=== PATIENT | male | born 1940 | race Caucasian/White ===

== ENCOUNTER 2016-11-13 10:31 | Day surgery (SDC) | payer MEDICARE, OTHER ==
[~2016-11-13] VITALS: Ht 177.8 cm; Wt 103.0 kg
[~2016-11-13 10:31] MED LIST: 0.9% Sodium Chloride 1,000 ML IV SCH; ASPI-973 PO; CHOL10008 PO; CHOL200047 PO; LISI10TA PO; METO-272 PO; OMEG500C PO; OMEP20CA11 PO; Sodium Chloride LOK Flush 10 mL Syringe IV PRN; fentaNYL-PF 50 mCg/mL 2 mL Inj IVPUSH PRN
[2016-11-13 10:40] VITALS: BP 186/104; PULSE 58; RESP 14; O2SAT 99
[2016-11-13 10:51] VITALS: BP 173/95
[2016-11-13 11:51] VITALS: BP 119/89; PULSE 58; RESP 16; O2SAT 96
[2016-11-13 12:03] VITALS: BP 147/80; PULSE 61; RESP 16; O2SAT 99
[2016-11-13 12:13] VITALS: BP 147/80; PULSE 60; RESP 16; O2SAT 97
--- NOTE | 2016-11-13 13:19 | ENDO ---
[address] [address] ENDOSCOPY PROCEDURE PATIENT: RONNIE MATA : 1940 MR#: [id number] ADMIT: 11/13/2016 JOB ID: [id number] DATE OF SERVICE: 11/13/2016 TYPE OF OPERATION: Esophagogastroduodenoscopy with biopsy. PREOPERATIVE DIAGNOSIS(ES): Dysphagia. POSTOPERATIVE DIAGNOSIS(ES): Esophageal mass that appeared ulcerated and hard with friable mucosa strand at 36 cm from the incisors in which the scope could not pass. Several biopsies were taken at this site. ANESTHESIA: Fentanyl 125 mcg, Versed 7 mg IV administered. COMPLICATIONS: None. BLOOD LOSS: Minimal. DESCRIPTION OF PROCEDURE: After risks and benefits explained to the patient, informed consent was obtained. After anesthesia administered, upper endoscope inserted in mouth, intubated into the esophagus, to 36 cm from the incisors. The scope could not pass through this area due to a mass. After the procedure was done, the scope was withdrawn and the procedure terminated. FINDINGS: Upon entering the esophagus, there appeared to be a friable ulcerated mass that encompassed most of the lumen that appeared malignant in appearance. The scope tried to transverse through the mass in which the mass itself encompassed too much of the lumen. Several biopsies were taken of this region to rule out malignancy. The procedure was then aborted. IMPRESSION: Esophageal mass with ulceration and friable strand at 36 cm from the incisors in which the scope could not pass. RECOMMENDATIONS: 1. Await pathology results. 2. CT of chest, abdomen and pelvis with contrast for staging. 3. We will send oncology referral based upon the appearance at this point in time. 4. Follow up in GI clinic after pathology results are obtained.
--- NOTE | 2016-11-15 16:54 | PATH ---
SURGICAL PATHOLOGY Attending Physician:Sukumar Rojo MD CASE STATUS: Signed Out PATIENT NAME: RONNIE MATA PID: [id number] : 1940 DATE COLLECTED:11/13/2016 20:19 SPECIMEN: Esophagus, Biopsy CLINICAL HISTORY: DYSPHAGIA 1). ESOPHAGEAL MASS BIOPSY FINAL DIAGNOSIS: Esophageal Mass, Biopsy: Poorly differentiated neoplasm. Immunohistochemistry studies pending; results will be reported as an addendum. ICD10: C15.9 NOTE: Dr. Rojo notified of result at approximately 1:50 p.m. on 11-15-16. GROSS DESCRIPTION: The specimen is received in one formalin filled container labeled with the patient's name, sublabeled "esophageal mass" and consists of multiple extremely tiny portions of tissue which aggregate to 3.4 x 0.4 x 0.2 CM. The specimen is entirely submitted in one cassette. 11/13/2016 [facility] ICD-9 CODES: CPT CODES: 1: 06283, 29268, 67934, 46507, 47980, 27650, 75408, 23845, 92774, 38138, 88274 PROCEDURE/ADDENDA: Immunohistochemistry SPI Interpretation Esophageal Mass, Biopsy: Poorly differentiated carcinoma, primary site indeterminate (see addendum comment). Results-Comments This addendum is issued to report the results of slide consultation [facility] Calloway ([facility], [phone]). "The esophageal biopsies are composed of fragments of a poorly differentiated epithelioid malignancy which forms nests of intermediate to large cells with moderate amounts of faintly eosinophilic cytoplasm, ovoid pleomorphic nuclei with open chromatin and prominent nucleoli. The tumor cells merge and connect with an overlying ulcerated atypical squamous epithelium. A panel of immunostains is obtained to determine the cell lineage and primary site. Controls stained appropriately. The tumor cells show the following results: Cytokeratin 7: Uniformly positive. Cytokeratin 20: Negative. Cytokeratin 5/6: Rare cell positive. p63: Rare cell positive. Synaptophysin: Negative. CD45: Negative Melan-A: Negative. CDX2: Negative. Villin: Negative. TTF1: Negative. Napsin: Negative. GATA3: Negative. SALL4: Negative. Hep Par 1: Negative. HER-2 (4B5): Negative for overexpression (0). These results strongly support the diagnosis of a carcinoma given uniform expression with cytokeratin 7 and exclude the possibility of a lymphoma or melanoma (further ruled against given the negative CD45 and Melan-A, respectively). The primary site of this carcinoma remains indeterminate, however. Specifically, there is no confirmatory evidence for squamous cell (minimal expression only with p63 and cytokeratin 5/6) or neuroendocrine (negative synaptophysin) carcinoma. In addition, there is no evidence for an adenocarcinoma originating from gastrointestinal tract including lower esophagus/stomach and pancreatobiliary tree (negative CDX2/villin). Furthermore, there is no evidence for a " gut differentiation" subtype of gastric carcinoma (negative SALL4/Hep Par 1). Also, there is no evidence for the less likely possibilities of a metastatic deposit from an adenocarcinoma from lung (negative TTF1/napsin) or transitional cell carcinoma (negative GATA3) and the expression of CK7 in this case rules against the possibilities of origin from adenocarcinoma of prostate, renal cell carcinoma or hepatocellular carcinoma. These negative results with the above listed organ-specific markers, however, do not completely exclude origin from any of the listed sites and the possibility of a primary squamous cell carcinoma cannot be completely excluded either. Having said that, given the provided clinical history (patient presenting with esophageal mass, with no other known primaries), the possibility of a primary lower esophageal/gastric adenocarcinoma is slightly favored given that these tumors may show absence expression of the gastrointestinal markers CDX2 and villin in approximately 40%-50%. TECHNICAL NOTE: Cold ischemic time not provided. Formalin fixation time not provided. The scoring criteria for HER-2 expression by immunohistochemistry in gastric and esophagogastric junction adenocarcinoma is based on the current ASCO/CAP 2013 guidelines (as used in the ToGA trial, Ranjan et al, Lancet 28:376,687-697,2010). * This test was developed and its performance characteristics determined by [employer]. It has not been cleared or approved by the U.S. Food and Drug Administration. The FDA has determined that such clearance or approval is not necessary. This test is used for clinical purposes. It should not be regarded as investigational or for research." Electronically Signed Out Stefany Ryan MD Electronically Signed Out Nicole Cadena MD [facility] [address] [facility] [facility], [place] [address] Technical component performed at [facility], [address], [place], [address]
[2016-11-26] MEDS ORDERED: RED600CA2 PO (12:52)
[2016-11-26] MEDS ORDERED: LISI40TA PO (13:00)
[2016-11-26] MEDS ORDERED: CHOL500011 PO (13:00)
[2016-11-26] MEDS ORDERED: FISH1CAP15 PO (13:00)
== END 2016-11-13 23:59 | disposition home or self-care (01) ==
LOC: END 10:31
PROVIDERS: ATTEND Internal Medicine Gastroenterology
DX: D37.8 Neoplasm of uncertain behavior of other specified digestive organs (principal); R13.10 Dysphagia, unspecified; I10 Essential (primary) hypertension; Z72.89 Other problems related to lifestyle
CPT/HCPCS: 43239; 88305; 88341; 88342; G0500; J7030

== ENCOUNTER → 2017-02-11 | Day surgery (SDC) | payer MEDICARE, OTHER ==
[~2017-02-11] VITALS: Ht 177.8 cm; Wt 91.2 kg
[2017-02-11] VITALS (8 sets, daily range): BP systolic 141–167; BP diastolic 66–90; PULSE 68–100; RESP 16–22; O2SAT 95–100
[~2017-02-11] MED LIST changes: -0.9% Sodium Chloride 1,000 ML IV SCH; -ASPI-973 PO; +Ampicillin-Sulbactam Inj 3,000 MG in 0.9% Sodium Chloride 100 ML IV ONE; +Bupivacaine-MPF 0.5% W/EPI 30 mL Inj INFILTRATE ONE; -CHOL10008 PO; -CHOL200047 PO; +CHOL500011 PO; +Dexamethasone 4 mg/mL Inj IVPUSH PRN; +EPHEDrine Sulfate 50 mg/mL Inj IVPUSH PRN; +FISH1CAP15 PO; +Glycopyrrolate 0.2 MG/ML 1mL Inj ONE; +HYDROmorphone 1 mg/mL Inj IVPUSH PRN; -LISI10TA PO; +LISI40TA PO; +Lactated Ringer's 1,000 ML IV ONE; +Lactated Ringer's 1,000 ML IV SCH; +Lactated Ringer's 500 ML IV PRN; +MetoCLOpramide 5 mg/mL 2 mL Inj IVPUSH PRN; +Neostigmine 1 mg/mL 10 mL Inj ONE; -OMEG500C PO; -OMEP20CA11 PO; +Ondansetron 2 mg/mL 2 mL Inj IVPUSH PRN; +Ondansetron 2 mg/mL 2 mL Inj ONE; +Phenylephrine 10,000 mCg/mL Inj IVPUSH PRN; +Phenylephrine/NS-PF 100 mCg/mL 5 mL Syringe IVPUSH ONE; +Propofol 10,000 mCg/mL 20 mL Inj ONE; +RED600CA2 PO; +Rocuronium 10 mg/mL 5 mL Inj ONE; -Sodium Chloride LOK Flush 10 mL Syringe IV PRN; +Succinylcholine Chloride 20 mg/mL 5 mL Inj ONE; +fentaNYL-PF 50 mCg/mL 2 mL Inj ONE; +oxyCODONE 1 mg/mL 5 mL Liquid TUBE PRN
--- NOTE | 2017-02-11 12:02 | HP ---
[address] [address] HISTORY AND PHYSICAL PATIENT: RONNIE MATA : 1940 MR#: [id number] ADMIT: 02/11/2017 JOB ID: [id number] CHIEF COMPLAINT/IDENTIFICATION: Dr. Matthews has asked me to replace this patient's feeding tube. HISTORY OF PRESENT ILLNESS: A 77-year-old man who in October of this year was diagnosed with esophageal cancer. He underwent feeding jejunostomy tube placement laparoscopically by Dr. Sumit Rothman at [facility] with anticipated ventral surgery. However, at the same time, a liver biopsy demonstrated metastatic disease in the liver and at this point, he is no longer considered a surgical candidate. He has been receiving chemotherapy and radiation therapy here at [facility]. Last night at 7 p.m. his feeding jejunostomy came out. He is receiving essentially all of his nutrition and hydration through this, as he has difficulty swallowing due to a near obstructing mass at the distal esophagus. PAST MEDICAL HISTORY: 1. Hypertension. 2. Gout. 3. Status post rotator cuff surgery. 4. Status post left knee replacement. 5. Status post appendectomy. 6. Status post hernia surgery. MEDICATIONS: 1. Lisinopril. 2. Metoprolol. 3. Aspirin. 4. Xrhh-mvp-ecbnxay medications including omega-3 fatty acids. ALLERGIES: None. 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 Negative tobacco, except for the occasional cigar. Currently not drinking alcohol on a daily basis. FAMILY HISTORY: Noncontributory. REVIEW OF SYSTEMS: Noncontributory. PHYSICAL EXAMINATION: The patient is seen in the Oncology Clinic. Vital signs recorded within normal limits. Heart and lungs are unremarkable. He has a healing mini-laparotomy incision by the umbilicus, possibly a Clifton port placement. His jejunostomy site is open. In the Oncology Clinic, I attempted to intubate his jejunostomy blindly but have been unable to. Extremities are without edema. Neurologically, he is intact. LABORATORIES: His white count is 5.3, hematocrit 31.7, platelet count is 293. Chemistries are normal. Glucose is 116. Liver function tests are normal. IMPRESSION AND PLAN: Dislodged jejunostomy. I had hoped to be able to place it at the bedside but then made initial plan to place either a laparoscopic jejunostomy or a laparoscopic gastrostomy in the operating room. I have discussed the case with Dr. Sepulveda of radiology. Interventional Radiology will attempt to visualize this tract with dye, cannulate it with a wire perhaps and replace the feeding jejunostomy. This would be to the patient's advantage, as it would help him avoid a general anesthetic. Either way, we will get a tube into his gastrointestinal tract today.
--- NOTE | 2017-02-11 17:19 | PCM.HPANE ---
Patient Data Surgeon Admitting Provider: Attending Provider:Sukumar Karimi MD Primary Care Physician:Jarad Pink MD Other Provider:Katie Gutierrezingham Anesthesia Reason for Visit Placement Of Jejunostomy Tube Ht/WT & BMI Height (Feet): 5 Height (Inches): 10 Weight (Kilograms): 91.2 Body Mass Index 28.00 Allergies Coded Allergies: No Known Allergies (Unverified , 02/11/17) Past Anesthesia History Anesthesia History: Denies:: Abnormal Airway, Anesthesia Reactions, Difficult Intubation, Fam Anesthesia Reaction, Fam Malignant Hypertherm, Malignant Hyperthermia Diabetes History Hx Diabetes?: No MRSA MRSA: No Medications Blood Thinner: Aspirin Reported Medications Fish Oil/Dha/Epa (Fish Oil 1,200 mg Fish Oil)1 Each Capsule1 Each PO DAILY 11/26/16 Cholecalciferol (Vitamin D3) (Vitamin D3)5,000 Unit Tablet5,000 Unit PO DAILY 11/26/16 Lisinopril 40 Mg Nhwrgs05 Mg PO DAILY Ref 0 11/26/16 Red Yeast Rice 600 Mg Dmxiuzk320 Mg PO DAILY 11/26/16 Metoprolol Succinate ER 50 Mg Tab.er.24h50 Mg PO DAILY Ref 0 11/12/16 History History of ENT Problems?: No HEENT History: Positive for:: Dysphagia (SOLIDS) Hearing Problem Denies:: Abnormal Airway Difficult Intubation Denture Type: None Teeth Condition: Within Normal Limits Hx of Heart Problems?: Yes Cardiovascular History: Positive for:: Hypertension Denies:: AICD Atrial Fibrillation Chest Pain Pacemaker Valvular Heart Disease Other History/Comments Cardiac ROS negative, normal stress test in November, just to check things out Hx of Respiratory Problem?: No Respiratory History: Denies:: Asthma COPD Chest Surgery Cough Dyspnea Emphysema Hemoptysis Oxygen Administration Pneumonia Pulmonary Embolism Tuberculosis Use of C-PAP Machine Use of Inhalers / NEBS Other History/Comment ROS negative Hx Neurologic Problems?: No Neurological History: Denies:: CVA Hx of GI Problems?: Yes Other History/Comment stage 4 Esophagel cancer, j tube in place since december 11 Hx of Problems?: No HX of Peritoneal Dialysis: No Male Hx: Denies:: Prostate Problems Scrotal Mass Testicular Surgery Skin History: Denies:: History Skin Disorders? Pressure Ulcers Hx Musculoskeletal Problems?: No Musculoskeletal History: Positive for:: Joint Replacement (KNEE) Hx of Psycho/Social Problems?: No Psycho Social History: Denies:: Anxiety Hx Depression Hx Surgeries?: Yes (APPENDECTOMY/PARTIAL KNEE/ROTATOR CUFF) Hx Any Other Health Problems?: Yes Hx Diabetes: No Hx Alcohol Use: YesHave You Smoked inLast 12 mo: No Stop/Bang Treated for Sleep Apnea?: No Do You Have a CPAP Machine?: No Risk Assessment Category Category 1A: Patient has history of documented sleep apnea, and HAS NOT received any narcotic, sedative or anesthesia administration during this stay. Category 1B: Patient has history of documented sleep apnea, and HAS received any narcotic , sedative or anesthesia administration during this stay Category 2: Patient has SUSPECTED Obstructive Sleep Apnea, and HAS received any narcotic , sedative or anesthesia administration during this stay. Category 3: Patient has SUSPECTED Obstructive Sleep Apnea and HAS NOT received narcotic, sedative or anesthesia administration during this stay. Category 4: Outpatient in Procedural Areas with known sleep apnea or who screen positive for High Risk via the STOP/BANG questionnaire. Exam Exam Vital Signs Vital Signs Date Time Temp Pulse Resp B/P Pulse Ox O2 Delivery O2 Flow Rate FiO2 02/11/17 13:50 36.1 75 16 145/66 100 Room Air General Appearance: Alert, Oriented X3, Cooperative HEENT/AIRWAY: MP 2 Lungs: Clear to Auscultation Heart: Exam Unremarkable Meds/Labs/Diagnostics Admission Meds Current Medications Lactated Ringer's (Lr) 1,000 ml @ ud STK-MED ONCE IV Last administered on 02/11t 13:46; Start 02/11/17 at 13:46; Stop 02/11/17 at 13:47; Status DC Plan Impression Patient chart reviewed, patient interviewed and anesthestic plan with risks, benefits, and alternatives discussed, and informed consent obtained. ASA Physical Status: ASA4 Life Threatening Anesthetic Plan: GA Bene/Risks/Altern/Consents: Yes HP Complete Prior to Induction: Yes Sukumar Jimenez MD Feb 11, 2017 17:19
--- NOTE | 2017-02-11 18:46 | PCM.DISURG ---
Surgical Discharge Instruction Date of Service Feb 11, 2017 Dates of Hospitalization Date of Hospital Admission Providers Admitting Physician: Primary Care Physician: Jarda Pink MD Attending Physician: Sukumar Karimi MD Diet Discharge Diet: No restrictions Activity Discharge Activity-General: No restrictions, Activity as pain allows, No lifting >15 pounds for 2 weeks, No driving while taking narcotic Dressing and Incisional Care Dressing Care: Allow Steri Stripes to fall off, Remove outer dressing after 24 hrs Hygiene: May shower after (24 hours), DO NOT soak incision under water, NO bathtub, hot tub or whirlpool Additional Instructions Discharge Instructions You may use your J-tube today for feeds. You do not need to follow up with the surgery team unless you have concerns about your incisions or wish to proceed to having a g-tube (gastric) placed for bolus tube feeds. Call at any time with questions or concerns. Follow Up Plan Call your provider for: Fever, Increasing abdominal pain, Wound redness, Increasing wound pain, Discharge @ incision, pus discharge Joao Madrid MD Feb 11, 2017 18:46
--- NOTE | 2017-02-11 19:37 | OP ---
[address] [address] OPERATIVE REPORT PATIENT: RONNIE MATA : 1940 MR#: [id number] ADMIT: 02/11/2017 JOB ID: [id number] DATE OF SURGERY: 02/11/2017 PREOPERATIVE DIAGNOSIS(ES): Esophageal cancer. POSTOPERATIVE DIAGNOSIS(ES): Esophageal cancer. PROCEDURE: Laparoscopic feeding jejunostomy tube. SURGEON: Sukumar Karimi MD, and Dr. Jim Hunter CABANA ATTENDANT: Darrell Saleh PA-C. INDICATION: A 77-year-old man with stage IV esophageal cancer. His feeding jejunostomy came out today. Interventional Radiology attempted to replace it but he was unable to tolerate it. He is brought to the operating room for laparoscopic exploration with plans for either new feeding jejunostomy or feeding gastrostomy. FINDINGS: 1. A surgical specialist was medically necessary for camera operation. 2. Feeding jejunostomy placed as described below. PROCEDURE: The patient was brought to the operating room. General anesthetic was administered. SCOAP protocol was followed. Abdomen was prepped and draped in sterile fashion. The patient had a previous mini-laparotomy in the midline for feeding jejunostomy and a paramedian incision in the right abdomen. Therefore, attempted to get a pneumoperitoneum by placing a Veress needle in the right upper quadrant. We were unable to get satisfactory placement of the Veress needle and we attempted an optical trocar placement, but once again, we were unable to safely enter the peritoneal cavity with the optical trocar. We then went to the left upper quadrant and placed an optical trocar with good success and insufflated the abdomen. We could see that the patient had some adhesions around the right upper quadrant as well as by his paramedian incision. I placed a right-sided port under vision and we could see that the patient's stomach was free and we would be able to perform a gastrostomy from the right side of the abdomen. We could only see the adhesions to the midline from the previous paramedian incision. We were unable to visualize the loop of jejunum that constituted the feeding jejunostomy. I therefore decided to proceed with the gastrostomy. We placed two additional right-sided ports, taking down some filmy adhesions, and opening up the space further. As we were doing this adhesiolysis, some of it was done with the camera in the left upper quadrant port, and at this point, after having placed three right-sided ports, I recognized that we were able to visualize the feeding jejunostomy tacked up to the anterior abdominal wall from the left upper quadrant port. Therefore, we took a 14-[place] TYSON feeding jejunostomy, and after dilating up the tract with a mosquito clamp, I was able to pass the jejunostomy tube into the jejunum through the previous tract. This was done without injuring the bowel or creating an open tract into the peritoneum. We passed the catheter for its entire length, position it with the balloon blown up partially and secured this to the site. We now considered proceeding with a laparoscopic gastrostomy as the preoperative discussion with the patient had indicated that he currently spends 17 hours a day on his feeding tube and then gastrostomy would allow him to have bolus feedings and have more free time without the tube feeding. However, given the preoperative discussion, including the fact that the patient was expected to only have one tube postoperatively, as well as his desire to go home, I felt the best solution was to simply stop at this point, secure his jejunostomy, and let him go home. We would remove the laparoscopic ports, but he could certainly come back electively for a conversion to a laparoscopic gastrostomy tube. On that basis, we removed our ports, let all the CO2 out, closed the incisions and secured the tube. The tube flushed easily. The patient will go home later tonight.
--- NOTE | 2017-02-11 19:40 | PCM.ANEP1 ---
Post Anesthesia PACU Phase 1 Assessment Vital Signs Vital Signs Date Time Temp Pulse Resp B/P Pulse Ox O2 Delivery O2 Flow Rate FiO2 02/11/17 19:20 68 16 141/67 96 Room Air 02/11/17 19:05 71 16 158/73 96 Room Air 02/11/17 18:56 73 22 158/78 96 Room Air 02/11/17 18:51 77 17 157/69 96 Room Air 02/11/17 18:49 79 19 155/90 96 Room Air 02/11/17 18:42 37.6 85 16 167/82 96 Room Air 02/11/17 13:50 36.1 75 16 145/66 100 Room Air Anesthetic Administered: GA Level of Alertness: Sleepy, easy to arouse COOPER's with Equal Strength: Yes Pain: No Nausea or Vomiting: No CV Function & Hydration Stable: Yes Airway Device: Oxygen Delivery: Nasal Cannula Lungs: Clear to Auscultation Dermatome Level: Full Sensation PACU Phase 2 Assessment Complications: No Follow up Care: No Patient Instructions Provided: N/A Sukumar Jimenez MD Feb 11, 2017 19:40
== END | disposition home or self-care (01) ==
LOC: SAS 13:18
PROVIDERS: ATTEND Surgery
DX: C15.9 Malignant neoplasm of esophagus, unspecified (principal); I10 Essential (primary) hypertension; R13.10 Dysphagia, unspecified; Z79.899 Other long term (current) drug therapy; M10.9 Gout, unspecified; Z79.82 Long term (current) use of aspirin
CPT/HCPCS: 44372; J0295; J0330; J2250; J2370; J2405; J2710; J3010; J7120